=== PATIENT | female | born 1950 | race Caucasian/White ===

== ENCOUNTER 2017-08-04 07:30 | Day surgery (SDC) | payer OTHER ==
[~2017-08-04] VITALS: Ht 160 cm; Wt 90.7 kg
[~2017-08-04 07:30] MED LIST: ASPIR 8181 M1 PO; COLACE100 MG PO; ESTRACE42.5 GM VG; LIPITOR20 MG PO
[2017-08-04 08:24] VITALS: BP 128/67
[2017-08-04 16:08] VITALS: BP 143/67
[2017-08-04 18:14] LABS: HEMATOCRIT 41.4 % (36.0-46.0); HEMOGLOBIN 13.3 G/DL (11.9-15.5); MCH 30.5 PG (29.0-34.0); MCHC 32.1 G/DL (30.0-36.0); PLATELET COUNT 238 K/uL (156-360); RBC DIS.WIDTH-CV 12.9 % (11.8-14.6); RBC DIS.WIDTH-SD 45.3 % (39-53); RED BLOOD COUNT 4.36 M/uL (3.80-5.20); WHITE BLOOD COUNT 11.8 K/uL (4.1-10.2)
[2017-08-04 18:38] LABS: CHLORIDE 106 MEQ/L (99-109); CREATININE 0.8 MG/DL (0.6-1.3); GFR ESTIMATE (CALCULATED) > 59 mL/min/; GLUCOSE 155 mg/dL (70-99); POTASSIUM 4.2 MEQ/L (3.7-5.4); SODIUM 139 MEQ/L (136-147); UREA NITROGEN (BUN) 10 mg/dL (9-23)
[2017-08-04 20:08] VITALS: BP 133/60
[2017-08-05 00:32] VITALS: BP 119/57
[2017-08-05 04:00] VITALS: BP 135/60
[2017-08-05 06:50] LABS: HEMATOCRIT 35.8 % (36.0-46.0); HEMOGLOBIN 11.5 G/DL (11.9-15.5); MCH 30.7 PG (29.0-34.0); MCHC 32.1 G/DL (30.0-36.0); MCV 95.7 FL (83-99); PLATELET COUNT 225 K/uL (156-360); RBC DIS.WIDTH-CV 13.2 % (11.8-14.6); RBC DIS.WIDTH-SD 47.1 % (39-53); RED BLOOD COUNT 3.74 M/uL (3.80-5.20); WHITE BLOOD COUNT 10.7 K/uL (4.1-10.2)
[2017-08-05 07:09] LABS: CHLORIDE 101 MEQ/L (99-109); CREATININE 0.8 MG/DL (0.6-1.3); GFR ESTIMATE (CALCULATED) > 59 mL/min/; GLUCOSE 125 mg/dL (70-99); POTASSIUM 3.8 MEQ/L (3.7-5.4); SODIUM 135 MEQ/L (136-147); UREA NITROGEN (BUN) 9 mg/dL (9-23)
[2017-08-05 07:29] VITALS: BP 110/57
[2017-08-05] MEDS ORDERED: TRAMADOL HCL50 MG PO (09:44)
== END 2017-08-05 12:51 | disposition home or self-care (01) ==
LOC: SDC 07:30 → 2SOUTH 12:30 → 2EASTP 12:30 → 2SOUTH 12:30 → ENRESERV 12:47 → 2EASTP 13:53 → ENPENDDIS 08-05 → 2EASTP 08-05 12:51
PROVIDERS: Obstetrics & Gynecology Gynecologic Oncology
DX: N81.3 Complete uterovaginal prolapse (principal); D06.9 Carcinoma in situ of cervix, unspecified; D26.9 Other benign neoplasm of uterus, unspecified; E55.9 Vitamin D deficiency, unspecified; Z79.82 Long term (current) use of aspirin; Z88.1 Allergy status to other antibiotic agents; Z91.09 Other allergy status, other than to drugs and biological substances
CPT/HCPCS: 80048; 85027; 88302; 88307; G0378; J0171; J0330; J0690; J1100; J1170; J2405; J2550; J2710; J3010